=== PATIENT | male | born 1995 | race Caucasian/White ===

== ENCOUNTER 2021-06-06 16:48 | Emergency (ER) | payer OTHER ==
[~2021-06-06] VITALS: Ht 165.1 cm; Wt 63.6 kg
[2021-06-06 20:25] VITALS: BP 127/83
== END 2021-06-06 21:33 | disposition home or self-care (01) ==
LOC: EMS 16:51
DX: F41.9 Anxiety disorder, unspecified (principal); R00.2 Palpitations
CPT/HCPCS: 82962; 93005; 99283